=== PATIENT | female | born 1960 | race Caucasian/White ===

== ENCOUNTER 2016-05-12 23:43 | Emergency (ER) | payer OTHER ==
[~2016-05-12] VITALS: Ht 165.1 cm; Wt 58.0 kg
[2016-05-12 23:45] VITALS: BP 146/92; PULSE 80; RESP 16; TEMP 97.7; O2SAT 98
[2016-05-13] MEDS ORDERED: ASPI1TAB69 PO (00:08)
[2016-05-13] MEDS ORDERED: ROSU40 PO (00:09)
[2016-05-13] MEDS ORDERED: LISI10TA3 PO (00:09)
[2016-05-13] MEDS ORDERED: WOMETAB5 PO (00:10)
[2016-05-13] MEDS ORDERED: LIDOCAINE HCL 1% PF 30 ML VIAL INFIL ONE (00:30)
--- NOTE | 2016-05-13 01:29 | RADHPO ---
EXAM DATE/TIME: 05/13/2016 01:06 [place] COMPARISON: No previous studies available for comparison. INDICATIONS : Right hand, fifth MCPJ laceration post trip and fall. MEDICAL HISTORY : None. SURGICAL HISTORY : None. ENCOUNTER: Initial ACUITY: 1 day PAIN SCORE: 8/10 LOCATION: Right upper extremity FINDINGS: Three view examination of the right hand demonstrates no soft tissue swelling, dislocation, or fractu re. The carpal bones appear intact. The interphalangeal and metacarpophalangeal joints are intact. Bony mineralization is normal. CONCLUSION: No acute disease. Esa Zamudio MD on May 13, 2016 at 1:26 Board Certified Radiologist. This report was verified electronically.
[2016-05-13 01:40] VITALS: BP 140/85; PULSE 87; RESP 18; O2SAT 99
[2016-05-13] MEDS ORDERED: IBUPROFEN 400 MG TAB PO ONE (02:00)
--- NOTE | 2016-05-13 02:02 | PD ---
HPI Chief Complaint: Laceration/Skin Injury Time Seen by Provider: 00:21 Travel History International Travel<30 days: No Contact w/Intl Traveler<30days: No Traveled to known affect area: No History of Present Illness HPI 65-year-old female presents to the emergency department for injury to the right hand after a non-syncopal slip and fall sustaining a laceration to the palm at the base of the fifth finger. Patient cut the palm of her hand on gravel and noted a large amount of debris and gravel in the laceration. Patient denies other injury. Patient states she did not hit her head did not have loss of consciousness did not injure her neck back chest ribs abdomen pelvis or other extremity is. Patient does not her tetanus status. Patient is right-handed. Patient denies any numbness tingling or weakness or deformity of the right hand and states she is able to flex and extend all of her digits without any discomfort. Patient attempted to cleanse wound at home but due to persistent bleeding and irregularity of the laceration decided to come to the emergency room for evaluation of possible repair. [facility] Past Medical History Narrative Medical Hypertension dyslipidemia no surgeries alcohol use nursing notes reviewed High Cholesterol: Yes Diminished Hearing: No Hypertension: Yes Tetanus Vaccination: < 5 Years Influenza Vaccination: No ?: Unknown Past Surgical History Surgical History: No Previous Surgery Social History Alcohol Use: Yes (Socially) Tobacco Use: No Substance Use: No Allergies-Medications (Allergen,Severity, Reaction): Coded Allergies: No Known Allergies (Unverified , 05/13/16) Reported Meds & Prescriptions Reported Meds & Active Scripts Active Tramadol (Tramadol HCl) 50 Mg Tab 50 Mg PO Q6H PRN Keflex (Cephalexin) 500 Mg Cap 500 Mg PO Q6H 7 Days Reported Womens One Daily (Multiple Vitamins W/ Minerals) 1 Tab Tab 1 Tab PO DAILY Lisinopril 10 Mg Tab 10 Mg PO DAILY Crestor (Rosuvastatin Calcium) 40 Mg Tab 40 Mg PO DAILY Aspirin 81 Mg Tabdr 81 Mg PO DAILY Review of Systems Except as stated in HPI: all other systems reviewed are Neg Physical Exam Narrative GENERAL: Well-developed well-nourished female in no acute distress no respiratory distress SKIN: Warm and dry. HEAD: Normocephalic. Atraumatic. EYES: No scleral icterus. No injection or drainage. NECK: Supple, trachea midline. No JVD or lymphadenopathy. Nontender to direct palpation along the cervical spine. CARDIOVASCULAR: Regular rate and rhythm without murmurs, gallops, or rubs. RESPIRATORY: Breath sounds equal bilaterally. No accessory muscle use. GASTROINTESTINAL: Abdomen soft, non-tender, nondistended. MUSCULOSKELETAL: No cyanosis, or edema. Attention right palm irregular 3 cm laceration to the palm just proximal to the fifth MCP with marked amount of debris and gravel noted in the wound distally the his extremity is neurovascular tendon intact with intact extension and flexion capillary refill brisk and less than 2 seconds as well as sensory exam intact motor strength intact; remainder of digits and hand exam found to be normal thumb apposition intact proximally there is no soft tissue swelling deformity or tenderness of the wrist forearm elbow upper arm or shoulder. BACK: Nontender without obvious deformity. No CVA tenderness. Data Data Last Documented VS Vital Signs Date Time Temp Pulse Resp B/P Pulse Ox O2 Delivery O2 Flow Rate FiO2 05/13/16 03:01 86 18 145/79 96 05/13/16 02:20 98.4 Room Air Orders Lidocaine Pf 1% Inj (Xylocaine-Mpf 1% In (05/13/16 00:30) Hand, Complete ([id number]) (05/13/16 ) Ibuprofen (Motrin) (05/13/16 02:00) Cefazolin Inj (Ancef Inj) (05/13/16 02:30) Wound Culture And Gram Stain (05/13/16 02:48) MDM Medical Decision Making Medical Screen Exam Complete: Yes Emergency Medical Condition: Yes Medical Record Reviewed: Yes Interpretation(s) Last Impressions Hand X-Ray 05/13/16 0000 Signed Impressions: Service Date/Time: Friday, May 13, 2016 01:06 - CONCLUSION: No acute disease. Esa Zamudio MD Differential Diagnosis Laceration neurovascular tendon injury or fracture Narrative Course Patient identified to have a contaminated laceration to the right hand; imaging studies ordered Site cleansed aggressively with copious irrigation and laceration repaired patient received first dose of antibiotic in the emergency department and tetanus status was updated. Patient tolerated laceration repair well and is stable for outpatient management. Procedures Procedure Narrative LACERATION LOCATION: right hand LENGTH: 3 cm NUMBER OF STITCHES/AMOR: 10 REPAIR: The area of the laceration was prepped with Betadine and sterilely draped. The laceration was infiltrated with 1% lidocaine plain. The wound was copiously irrigated and explored without evidence of foreign body, tendon injury or neurovascular injury. The wound was closed using 5-0 nylon. This was a single layer repair. A sterile dressing was applied. The patient was advised to keep the dressing clean and dry. Patient tolerated the procedure well. Diagnosis Primary Impression: Laceration of left hand Referrals: Family Practice Physician call for appointment Hand Surgeon call for appointment Patient Instructions: General Instructions Additional Instructions: Follow wound care instructions Wound check at 2 days and suture removal at 7-10 days Keep site clean and dry change dressing daily or more frequently if it becomes wet or contaminated Take ibuprofen/Advil/Motrin as often as every 6-8 hours as needed for pain associated with inflammation Take acetaminophen as needed for fever 100.4F or greater Take pain medication as prescribed as needed Complete course of antibiotic as prescribed Return to the emergency department for any concerns or change in condition Follow-up with your primary care provider call office to schedule follow-up appointment; follow-up with hand surgeon as needed Med/Other Pt SpecificInfo: Prescription(s) given Scripts Tramadol 50 Mg Tab50 Mg PO Q6H PRN (PAIN) #7 TAB Ref 0 Prov:Evita Mayorga MD 05/13/16 Cephalexin (Keflex)500 Mg Oni041 Mg PO Q6H 7 Days Ref 0 Prov:Evita Mayorga MD 05/13/16 Disposition: 01 DISCHARGE HOME Condition: Stable Evita Mayorga MD May 13, 2016 02:02
[2016-05-13] MEDS ORDERED: CEPH-460 PO (02:07)
[2016-05-13] MEDS ORDERED: TRAM50TA PO (02:07)
[2016-05-13 02:20] VITALS: BP 148/88; PULSE 80; RESP 18; TEMP 98.4; O2SAT 96
[2016-05-13] MEDS ORDERED: ceFAZolin INJ 1,000 MG VIAL IM ONE (02:30)
[2016-05-13 03:00] VITALS: RESP 18
[2016-05-13 03:01] VITALS: BP 145/79
== END 2016-05-13 03:05 | disposition home or self-care (01) ==
LOC: EDBD → PHED 23:43 → EDBD 23:43 → PHED 05-13 03:05
DX: S61.421A Laceration with foreign body of right hand, initial encounter (principal); I10 Essential (primary) hypertension; E78.00 Pure hypercholesterolemia, unspecified; W01.0XXA Fall on same level from slipping, tripping and stumbling without subsequent striking against object, initial encounter; Y93.9 Activity, unspecified; Y92.9 Unspecified place or not applicable; Y99.8 Other external cause status; B95.61 Methicillin susceptible Staphylococcus aureus infection as the cause of diseases classified elsewhere
CPT/HCPCS: 12002; 73130; 86403; 87070; 87077; 87186; 96372; 99283; J0690

== ENCOUNTER 2016-05-14 08:19 | Emergency (ER) | payer OTHER ==
[~2016-05-14] VITALS: Ht 165.1 cm; Wt 57.1 kg
[~2016-05-14 08:19] MED LIST: ASPI1TAB69 PO; CEPH-460 PO; LISI10TA3 PO; ROSU40 PO; TRAM50TA PO; WOMETAB5 PO
[2016-05-14 08:28] VITALS: BP 135/87; PULSE 77; RESP 16; TEMP 98.7; O2SAT 100
--- NOTE | 2016-05-14 08:48 | PD ---
HPI Chief Complaint: Wound/Suture/Staple Re-Check Time Seen by Provider: 08:46 Travel History International Travel<30 days: No Contact w/Intl Traveler<30days: No Traveled to known affect area: No History of Present Illness HPI Patient presents for reevaluation of right hand laceration repaired on Sunday. Compliant with antibiotics. Compliant with general wound care. Denies any nausea vomiting diarrhea or fever. Denies any new chest pain shortness of breath urinary or bowel symptoms. PFSH Past Medical History Hx Anticoagulant Therapy: Yes (81 MG ASA) Cardiovascular Problems: Yes (HTN) High Cholesterol: Yes Diminished Hearing: No Hypertension: Yes ?: Not Past Surgical History Surgical History: No Previous Surgery Social History Alcohol Use: Yes (Socially) Tobacco Use: No Substance Use: No Allergies-Medications (Allergen,Severity, Reaction): Coded Allergies: No Known Allergies (Unverified , 05/14/16) Reported Meds & Prescriptions Reported Meds & Active Scripts Active Tramadol (Tramadol HCl) 50 Mg Tab 50 Mg PO Q6H PRN Keflex (Cephalexin) 500 Mg Cap 500 Mg PO Q6H 7 Days Reported Womens One Daily (Multiple Vitamins W/ Minerals) 1 Tab Tab 1 Tab PO DAILY Lisinopril 10 Mg Tab 10 Mg PO DAILY Crestor (Rosuvastatin Calcium) 40 Mg Tab 40 Mg PO DAILY Aspirin 81 Mg Tabdr 81 Mg PO DAILY Review of Systems General / Constitutional: No: Fever Eyes: No: Visual changes HENT: No: Headaches Cardiovascular: No: Chest Pain or Discomfort Respiratory: No: Shortness of Breath Gastrointestinal: No: Abdominal Pain Genitourinary: No: Dysuria Musculoskeletal: No: Pain Skin: No Rash Neurologic: No: Weakness Psychiatric: No: Depression Endocrine: No: Polydipsia Hematologic/Lymphatic: No: Easy Bruising Physical Exam Narrative GENERAL: Well-nourished, well-developed patient. SKIN: Focused skin assessment warm/dry. HEAD: Normocephalic. EYES: No scleral icterus. No injection or drainage. NECK: Supple, trachea midline. No JVD or lymphadenopathy. CARDIOVASCULAR: Regular rate and rhythm without murmurs, gallops, or rubs. RESPIRATORY: Breath sounds equal bilaterally. No accessory muscle use. GASTROINTESTINAL: Abdomen soft, non-tender, nondistended. MUSCULOSKELETAL: No cyanosis, or edema. BACK: Nontender without obvious deformity. No CVA tenderness. Right hand palmar ulnar distal aspect at the base of the small finger with multiple interrupted sutures healing well without any cellulitic change drainage or discharge Data Data Last Documented VS Vital Signs Date Time Temp Pulse Resp B/P Pulse Ox O2 Delivery O2 Flow Rate FiO2 05/14/16 08:28 98.7 77 16 135/87 100 MDM Medical Decision Making Medical Screen Exam Complete: Yes Emergency Medical Condition: Yes Differential Diagnosis Cellulitis, wound check, abscess, sepsis Narrative Course Assessment and plan discussed with patient bedside. Wound cleaned aggressively. Tetanus is up-to-date per patient Diagnosis Primary Impression: Visit for wound check Patient Instructions: General Instructions Additional Instructions: Encouraged and discussed continued general wound care, encouraged to continue oral antibiotics. Follow-up with PCP for suture removal Med/Other Pt SpecificInfo: No Meds Exist/No RX given Disposition: 01 DISCHARGE HOME Condition: Good Carl Rodriguez MD May 14, 2016 08:48
== END 2016-05-14 09:05 | disposition home or self-care (01) ==
LOC: EDBD → PHEFT 08:19 → EDBD 08:19 → PHEFT 09:05
DX: S61.411D Laceration without foreign body of right hand, subsequent encounter (principal); X58.XXXD Exposure to other specified factors, subsequent encounter
CPT/HCPCS: 99281